=== PATIENT | female | born 1995 | race Hispanic/Latino ===

== ENCOUNTER 2023-02-12 21:23 | Emergency (ER) | payer SELFPAY ==
[2023-02-12 23:22] LABS: SARS-CoV-2 NAA Rapid Test DETECTED (NotDetected)
== END 2023-02-12 23:39 | disposition home or self-care (01) ==
LOC: ERS 21:23
DX: U07.1 COVID-19 (principal); J32.9 Chronic sinusitis, unspecified
CPT/HCPCS: 99283